=== PATIENT | female | born 2000 | race American Indian/Alaskan Native ===

== ENCOUNTER 2021-09-23 07:46 | Outpatient (CLI) | payer BC ==
--- NOTE | 2021-09-23 10:03 | Ultrasound Report ---
ULTRASOUND BREAST RIGHT LIMITED, 09/23/2021 CLINICAL INFORMATION / INDICATION: R22.2 RIGHT AXILLARY LUMP. TECHNIQUE: Targeted ultrasound evaluation was performed of the area of interest. COMPARISON: None. FINDINGS: Targeted ultrasound of the area of palpable concern in the right axilla reveals a complex cystic lesi on just deep to the skin surface, measuring up to 3 x 3 x 2 mm. There is no internal vascularity demo nstrated. There is surrounding skin thickening, with slightly increased vascularity in the surroundin g tissue. IMPRESSION: 1. A benign-appearing subdermal lesion accounts for the area of palpable concern in the right axilla, likely a sebaceous cyst. There is surrounding skin thickening suggesting the possibility of superimp osed inflammation, and clinical correlation is recommended. Follow up recommendation: Clinical exam BI-RADS Category 2: BENIGN. A normal or "negative" report should not preclude biopsy or follow-up of a clinically suspicious find ing. Signer Name: Dana Flynn MD Signed: 09/23/2021 9:59 AM Workstation Name: [facility]
== END 2021-09-23 07:47 | disposition home or self-care (01) ==
LOC: US 07:46
PROVIDERS: ATTEND Family Medicine
DX: R22.2 Localized swelling, mass and lump, trunk (principal)